=== PATIENT | female | born 1945 | race African-American/Black ===

== ENCOUNTER → 2020-04-12 | Outpatient (CLI) | payer OTHER | LOC: OPSV 10:00 | DX: M06.9 Rheumatoid arthritis, unspecified (principal) | CPT/HCPCS: 96365; 96366; 96375; 96413; 96415; J1720; J1745; J7050 ==

== ENCOUNTER → 2020-05-24 | Outpatient (CLI) | payer OTHER ==
[~2020-05-24] VITALS: Ht 160 cm; Wt 68.9 kg
== END ==
LOC: OPSV 10:00
DX: M06.9 Rheumatoid arthritis, unspecified (principal)
CPT/HCPCS: 96365; 96366; 96375; 96413; 96415; J1720; J1745; J7050

== ENCOUNTER → 2020-07-12 | Outpatient (CLI) | payer OTHER ==
[~2020-07-12] VITALS: Ht 160 cm; Wt 75.3 kg
== END ==
LOC: OPSV 09:55
DX: M06.9 Rheumatoid arthritis, unspecified (principal)
CPT/HCPCS: 96365; 96366; 96375; 96413; 96415; J1720; J1745; J7050

== ENCOUNTER → 2020-08-23 | Outpatient (CLI) | payer OTHER ==
[~2020-08-23] VITALS: Ht 160 cm; Wt 75.3 kg
== END ==
LOC: OPSV 09:43
DX: M06.9 Rheumatoid arthritis, unspecified (principal)
CPT/HCPCS: 96375; 96413; 96415; J1720; J1745; J7030

== ENCOUNTER → 2020-10-04 | Outpatient (CLI) | payer OTHER ==
[~2020-10-04] VITALS: Ht 160 cm; Wt 68.9 kg
== END ==
LOC: OPSV 09:56
DX: M06.9 Rheumatoid arthritis, unspecified (principal)
CPT/HCPCS: 96375; 96413; 96415; J1720; J1745; J7030

== ENCOUNTER → 2020-11-15 | Outpatient (CLI) | payer OTHER ==
[~2020-11-15] VITALS: Ht 160 cm; Wt 75.3 kg
== END ==
LOC: OPSV 09:31
DX: M06.9 Rheumatoid arthritis, unspecified (principal)
CPT/HCPCS: 96375; 96413; 96415; J1720; J1745; J7050

== ENCOUNTER → 2020-12-27 | Outpatient (CLI) | payer OTHER ==
[~2020-12-27] VITALS: Ht 152.4 cm; Wt 80.7 kg
== END ==
LOC: OPSV 09:45
DX: M06.9 Rheumatoid arthritis, unspecified (principal)
CPT/HCPCS: 96375; 96413; 96415; J1720; J1745; J7050

== ENCOUNTER → 2021-02-06 | Outpatient (CLI) | payer OTHER ==
[~2021-02-06] VITALS: Ht 160 cm; Wt 75.3 kg
[2021-02-06 10:16] LABS: HEMOGLOBIN 12.8 gm/dl (12.3-15.3); RED BLOOD COUNT 4.45 M/UL (4.00-5.10); WHITE BLOOD COUNT 10.5 K/UL (4.5-11.0)
[2021-02-06 10:35] LABS: BUN/CREATININE RATIO 8 (0-10)
== END ==
LOC: OPSV 09:44
PROVIDERS: Internal Medicine
DX: M06.9 Rheumatoid arthritis, unspecified (principal)
CPT/HCPCS: 80053; 85027; 96365; J0129; J1720

== ENCOUNTER → 2021-02-20 | Outpatient (CLI) | payer OTHER ==
[~2021-02-20] VITALS: Ht 160 cm; Wt 75.3 kg
== END ==
LOC: OPSV 09:47
DX: M06.9 Rheumatoid arthritis, unspecified (principal)
CPT/HCPCS: 96365; 96375; J0129; J1720

== ENCOUNTER → 2021-03-06 | Outpatient (CLI) | payer OTHER ==
[~2021-03-06] VITALS: Ht 160 cm; Wt 75.3 kg
== END ==
LOC: OPSV 09:45
DX: M06.9 Rheumatoid arthritis, unspecified (principal)
CPT/HCPCS: 96365; 96375; J0129; J1720

== ENCOUNTER → 2021-04-03 | Outpatient (CLI) | payer OTHER ==
[~2021-04-03] VITALS: Ht 160 cm; Wt 75.3 kg
== END ==
LOC: OPSV 09:48
DX: M06.9 Rheumatoid arthritis, unspecified (principal)
CPT/HCPCS: 96365; 96375; J0129; J1720

== ENCOUNTER → 2021-05-01 | Outpatient (CLI) | payer OTHER ==
[~2021-05-01] VITALS: Ht 160 cm; Wt 75.3 kg
== END ==
LOC: OPSV 09:41
DX: M06.9 Rheumatoid arthritis, unspecified (principal)
CPT/HCPCS: 96365; 96375; J0129; J1720

== ENCOUNTER → 2021-06-26 | Outpatient (CLI) | payer OTHER ==
[~2021-06-26] VITALS: Ht 160 cm; Wt 75.3 kg
== END ==
LOC: OPSV 10:00
DX: M06.9 Rheumatoid arthritis, unspecified (principal)
CPT/HCPCS: 96365; 96375; J0129; J1720

== ENCOUNTER → 2021-07-24 | Outpatient (CLI) | payer OTHER ==
[~2021-07-24] VITALS: Ht 160 cm; Wt 75.3 kg
== END ==
LOC: OPSV 09:45
DX: M06.9 Rheumatoid arthritis, unspecified (principal)
CPT/HCPCS: 96365; 96375; J0129; J1720